=== PATIENT | female | born 1950 | race Caucasian/White ===

== ENCOUNTER 2016-05-29 05:09 | Day surgery (SDC) | payer MEDICARE, OTHER ==
[~2016-05-29] VITALS: Ht 165.1 cm; Wt 83.9 kg
[~2016-05-29 05:09] MED LIST: ACTOS45 MG PO; ALEVE PM PO; CENTRUM COMPLE1 EACH PO; DIABETES MED; FERREX 28 TABL1 EACH PO; GLIMEPIRIDE4 MG PO; GLUCOPHAGE1000 MG PO; IBUPROFEN800 MG PO; LEVOXYL137 MCG PO; LIBRAX CAPSULE1 CAP; MAGNESIUM OXID250 M1 PO; OYST-CAL-5001 TAB; POTASSIUM99 M1 PO; PREVACID30 MG PO; PROZAC20 MG PO; ULTRAM50 MG; VITAMIN C WITH500 M1; VOLTAREN75 MG PO; [UNRECOGNIZED DRUG - OTHER] PO
[2016-05-29] MEDS ORDERED: BENTYL10 MG PO (06:01)
[2016-05-29] MEDS ORDERED: ULTRAM50 MG PO (06:01)
[2016-05-29] MEDS ORDERED: VOLTAREN75 MG PO (06:02)
[2016-05-29 06:05] VITALS: BP 178/74; Ht 165.1 cm; Wt 83.9 kg
[2016-05-29 06:40] LABS: BASOPHILS 0.2 % (0.0-2.0); EOSINOPHILS 3.4 % (0-7); HEMATOCRIT 32.8 % (36.0-48.0); HEMOGLOBIN 10.4 g/dL (12-16); IMMATURE GRANULOCYTES 0.4 % (0-5); LYMPHOCYTES 26.4 % (15-50); MCH 30.4 pg (26.0-34.0); MCHC 31.7 g/dL (31.0-37.0); MCV 95.9 fL (80.0-100.0); MEAN PLATELET VOLUME 9.9 fL (7.4-10.4); MONOCYTES 7.6 % (2-11); RBC 3.42 10x6/uL (4.00-5.40); RDW 13.3 % (11.5-14.5); WBC 5.5 10x3/uL (4.8-10.8)
[2016-05-29 06:51] LABS: PLATELET COUNT 186 10x3/uL (130-400)
[2016-05-29 06:55] LABS: APTT 29.4 SECONDS (22.8-39.4)
[2016-05-29 06:58] LABS: ANION GAP 11.8 mmol/L (8-16); CALCIUM 8.7 mg/dL (8.5-10.1); CARBON DIOXIDE 27.7 mmol/L (21.0-32.0); CREATININE - SERUM 1.4 mg/dL (0.6-1.3); POTASSIUM - SERUM 4.5 mmol/L (3.5-5.1)
[2016-05-29] MEDS ORDERED: DEMEROL50 MG PO (08:31)
--- NOTE | 2016-05-29 09:23 | OP ---
PATIENT NAME: DOTTY GRANT MEDICAL RECORD: [id number] :46 LOCATION:[facility] ADMISSION DATE: SURGEON: THOMAS FISHER, JIM LONGO DATE OF OPERATION: 05/29/2016 PREOPERATIVE DIAGNOSES: 1. Rotator cuff tear of the right shoulder. 2. Impingement syndrome of the right shoulder. 3. Acromioclavicular arthritis of the right shoulder. POSTOPERATIVE DIAGNOSES: 1. Rotator cuff tear of the right shoulder. 2. Impingement syndrome of the right shoulder. 3. Acromioclavicular arthritis of the right shoulder. PROCEDURES: 1. Right shoulder arthroscopy with arthroscopic rotator cuff repair. 2. Arthroscopic distal clavicle excision -- 1 cm done through a separate incision. 3. Arthroscopic rotator cuff repair. SURGEON: Jim Guzman MD ANESTHESIA: General. INTRAOPERATIVE COMPLICATIONS: None. SUMMARY OF PATHOLOGIC FINDINGS: Consistent with the preoperative diagnosis. The patient had a full thickness rotator cuff tear at the supraspinatus tendon along with a downward sloping acromion with excoriation of the coracoacromial ligament as well as acromioclavicular arthritis with osteophytes. OPERATIVE SUMMARY IN DETAIL: After obtaining the appropriate preoperative orthopedic surgery consent as well as anesthetic consultation, evaluation and clearance, the patient was brought to the operating room and placed on the operating table in supine position. After adequate general laryngeal mask was administered, the patient was placed in a left lateral decubitus position. All pressure points were well padded to include down leg peroneal nerve pad as well as axillary roll. The patient was held firmly to the operating table using the vacuum pack suction system. Right upper extremity and shoulder were then prepped and draped in a routine sterile fashion. The arm was held in the [employer] traction boom at 30 degrees of forward flexion, 30 degrees of abduction with 10 pounds of traction laterally. Arthroscopy was established in the glenohumeral joint from a posterior portal. Anterior portal was established in the anterior safe interval. Diagnostic arthroscopy showed the patient had the above findings. Accessory lateral portal was created and a transrotator cuff ____ portal was used to decorticate the articular aspect of the supraspinatus tendinous footprint. Attention was then turned to the subacromial space where the [place] tissue ablation system was utilized to denude the undersurface of the acromion of all soft tissue ____ release the coracoacromial ligament. A 5-0 barrel bur was used to perform acromioplasty at the level of acromioclavicular joint. Then, through a separate anterior arthroscopic portal, distal clavicle was excised for 1 cm using the 5-0 barrel bur. Lastly, the rotator cuff footprint was further decorticated from the nonarticular aspect, a single #2 FiberTape was passed in an inverted mattress style in a single ____ 5.5 OPERATIVE REPORT [id number] DOTTY GRANT from [employer] was utilized to reapproximate the rotator cuff and secure it. Having completed this, arthroscopy portals were closed in a routine interrupted fashion using 4-0 Prolene. Sterile dressings were applied. The patient was awakened, taken to recovery room in stable condition. All final needle and sponge counts were correct. TRANSINT:[id number] Voice Confirmation ID: [id number] DOCUMENT ID: [id number] THOMAS FISHER, JIM LONGO at 0923 CC: [id number] DICTATION DATE: 05/29/16 0834 JOB FORWARDER: 05/29/16 0849 REG [facility] [address] [place] [address]
--- NOTE | 2016-05-29 14:28 | NUR ---
1045 IV DC WITH CATHER TIP INTACT
== END 2016-05-29 11:10 | disposition home or self-care (01) ==
LOC: D.OPS 05:09 → D.PAN 07:30 → D.OPS 07:30
PROVIDERS: Anesthesiology
DX: M75.121 Complete rotator cuff tear or rupture of right shoulder, not specified as traumatic (principal); M75.41 Impingement syndrome of right shoulder; M13.811 Other specified arthritis, right shoulder

== ENCOUNTER → 2016-08-05 13:23 | Outpatient (CLI) | payer MEDICARE, OTHER ==
[2016-05-29 06:05] VITALS: BMI 30.8
[~2016-08-05 13:23] MED LIST changes: +BENTYL10 MG PO; +DEMEROL50 MG PO; +ULTRAM50 MG PO
== END | disposition home or self-care (01) ==
LOC: D.MRI 13:23
DX: M46.96 Unspecified inflammatory spondylopathy, lumbar region (principal)

== ENCOUNTER 2016-09-30 09:58 | Outpatient (CLI) | payer MEDICARE, OTHER ==
[~2016-09-30] VITALS: Ht 165.1 cm; Wt 86.4 kg
[2016-09-30] MEDS ORDERED: JANUVIA100 MG PO (10:27)
[2016-09-30 10:33] VITALS: BP 123/66; Ht 165.1 cm; Wt 86.4 kg
--- NOTE | 2016-09-30 10:35 | NUR ---
1025-PROLIA INJECTION TO RIGHT ARM. LOT#: [id number] EXP: 11/10
== END 2016-09-30 10:49 | disposition home or self-care (01) ==
LOC: D.OPS 09:58
DX: M81.0 Age-related osteoporosis without current pathological fracture (principal)

== ENCOUNTER 2017-04-29 13:06 | Outpatient (CLI) | payer MEDICARE, OTHER ==
[~2017-04-29] VITALS: Ht 165.1 cm; Wt 83.6 kg
[~2017-04-29 13:06] MED LIST changes: +JANUVIA100 MG PO
[2017-04-29] MEDS ORDERED: JANUVIA100 MG PO (14:08)
[2017-04-29 14:11] VITALS: Ht 165.1 cm; Wt 83.6 kg
--- NOTE | 2017-04-29 14:19 | NUR ---
1415--DISCHARGE INSTRUCTIONS GIVEN, PT VERBALIZES UNDERSTANDING. PT OFF UNIT VIA AMBULATORY. KEITH CESPEDES
== END 2017-04-29 14:15 | disposition home or self-care (01) ==
LOC: D.OPS 13:06
DX: M81.0 Age-related osteoporosis without current pathological fracture (principal)

== ENCOUNTER → 2018-06-01 14:54 | Outpatient (CLI) | payer MEDICARE, OTHER ==
[2017-04-29 14:11] VITALS: BMI 30.6
== END | disposition home or self-care (01) ==
LOC: D.MRI 14:54
DX: M54.5 Low back pain (principal)